=== PATIENT | male | born 1985 | race Hispanic/Latino ===

== ENCOUNTER 2016-12-17 11:45 | Emergency (ER) | payer BC, OTHER ==
[2016-12-17] MEDS ORDERED: cloNIDine HCL 0.1 MG TAB PO ONE (13:27)
--- NOTE | 2016-12-17 13:29 | ED.PDOC ---
History of Present Illness - General Chief Complaint: General Stated Complaint: Hypertensive Just completed dialysis Time Seen by Provider: 12/17/16 13:16 Source: patient, RN notes reviewed, Vital Signs reviewed, family Exam Limitations: no limitations - History of Present Illness Initial Comments: Patient comes in with elevated blood pressure and a LEAL. Elevated BP was noted during dialysis this morning. He was given Clonidine 0.1mg X3 during dialysis w/ o improvement. Along with this he had some mild L sided chest pain which has resolved. He had a similar episode of CP last week but was told it was due to a panic attack. Reports his LEAL is currently 05/09. Timing/Duration: 4-6 hours Severity: moderate Improving Factors: nothing Worsening Factors: nothing Associated Symptoms: chest pain - worse with deep breath, headaches, malaise Allergies/Adverse Reactions: Allergies NO KNOWN ALLERGY Allergy (Verified 04/18/14 14:47) Home Medications: Ambulatory Orders Acetaminophen [Tylenol 8 Hour] 650 mg PO Q4HR PRN 12/17/16 Calcitriol 0.25 mcg PO DAILY 12/17/16 Calcium Acetate (Phosphate Bin [Phoslo] 1,334 mg PO ACHS 12/17/16 Clonidine HCl 0.1 mg PO DAILY 12/17/16 Cyclobenzaprine HCl 5 mg PO Q8HR PRN #12 tab 12/17/16 Diphenhydramine HCl [Diphenhist] 25 mg PO Q4HR PRN 12/17/16 Loperamide Cap [Imodium Cap] 2 mg PO Q30MIN PRN 12/17/16 Nitroglycerin 0.4 mg SL STAT PRN 12/17/16 Olmesartan Medoxomil [Benicar] 40 mg PO BEDTIME 12/17/16 Review of Systems - Review of Systems Constitutional: States: malaise EENTM: States: no symptoms reported Respiratory: States: no symptoms reported. Denies: short of breath Cardiology: States: see HPI, chest pain. Denies: palpitations, syncope Gastrointestinal/Abdominal: States: abdominal pain - RUQ off and on for a week or so, none currently Musculoskeletal: States: no symptoms reported Skin: States: no symptoms reported Neurological: States: headache. Denies: numbness, paresthesia, tingling All other Systems: No Change from Baseline Past Medical History (General) - Patient Medical History Hx Seizures: No Hx Stroke: No Hx Dementia: No Hx Asthma: No Hx of COPD: No Hx Cardiac Disorders: No Hx Congestive Heart Failure: No Hx Pacemaker: No Hx Hypertension: Yes Hx Thyroid Disease: No Hx Diabetes: No Hx Gastroesophageal Reflux: No Hx Renal Disease: Yes Hx Cancer: No Hx of HIV: No Hx Hepatitis C: No Hx MRSA: No Surgical History: no surgical history - Vaccination History Hx Tetanus, Diphtheria Vaccination: No Hx Influenza Vaccination: Yes Hx Pneumococcal Vaccination: Yes - Social History Hx Tobacco Use: No Hx Chewing Tobacco Use: No Hx Alcohol Use: No Hx Substance Use: No Hx Substance Use Treatment: No Hx Depression: No Feels Threatened In Home Enviroment: No Feels Threatened In a Relationship: No Hx Physical Abuse: No Hx Emotional Abuse: No Hx Suspected Abuse: No - Female History Patient : No Family Medical History - Family History Father Family History: No Known Living Status: Still Living Physical Exam - Physical Exam General Appearance: Alert, Comfortable, No apparent distress, Well Developed, Well Groomed, Well Hydrated, Well Nourished Neck: supple, normal inspection Respiratory: chest non-tender, lungs clear, normal breath sounds, no respiratory distress, no accessory muscle use Cardiovascular/Chest: regular rate, rhythm, no gallop, no murmur Gastrointestinal/Abdominal: normal bowel sounds, non tender, soft, no organomegaly, no pulsatile mass Extremity: normal inspection Neurologic: alert, normal mood/affect, oriented x 3 Skin Exam: normal color, warm/dry Comments: Vital Signs 12/17/16 12:14 Temperature 97.6 F Pulse Rate [L 55 L Arm] Respiratory 20 Rate Blood Pressure 191/108 [L Arm] O2 Sat by Pulse 100 Oximetry Progress - Progress Progress: 12/17/16 14:57 No improvement in BP after Clonidine 0.1mg PO Gave Cardizem 10mg IV 12/17/16 18:08 No change in BP after Cardizem. Gave Norvasc, still no change. @~17:15 patient mentioned he does take Benicar. He is suppose to take at night but took this morning prior to dialysis. Had him go ahead and take his normal evening dose of 40mg. Currently his BP is 199/98, improved from 208/112. Will con't to watch and see if it continues to come down. 12/17/16 18:37 BP improving 171/102 LEAL gone but still having pain in his upper back and neck. + muscle spasm and tenderness. Will give Flexeril 5mg PO. 12/17/16 18:53 BP 165/95 - Results/Orders Results/Orders: Laboratory Tests 12/17/16 12/17/16 13:35 13:35 WBC 6.8 RBC 3.84 L Hgb 11.5 L Hct 34.7 L MCV 90.2 MCH 29.9 MCHC 33.3 RDW 17.7 H Plt Count 221 MPV 7.5 Absolute Neuts (auto) 5.00 Absolute Lymphs (auto) 1.10 Absolute Monos (auto) 0.50 Absolute Eos (auto) 0.10 Absolute Basos (auto) 0.00 Neutrophils % 74.1 Lymphocytes % 16.5 L Monocytes % 7.5 Eosinophils % 1.5 Basophils % 0.4 Sodium 137 Potassium 3.6 Chloride 93 L Carbon Dioxide 31 Anion Gap 16.6 BUN 14 Creatinine 4.88 H BUN/Creatinine Ratio 2.9 L Random Glucose 86 Serum Osmolality 273.6 L Calcium 9.2 Total Bilirubin 0.8 AST 24 ALT 37 Alkaline Phosphatase 97 Creatine Kinase 70 CK-MB (CK-2) 0.5 CK-MB (CK-2) % Not Reportable Troponin I < 0.02 Serum Total Protein 7.7 Albumin 4.5 Globulin 3.2 Albumin/Globulin Ratio 1.4 - EKG/XRAY/CT XRAY: chest - Normal per Radiologist Departure - Departure Clinical Impression: Muscle spasm of back Hypertension Qualifiers: Hypertension type: renovascular hypertension Qualified Code(s): I15.0 - Renovascular hypertension Headache, tension-type Qualifiers: Headache chronicity pattern: acute headache Intractability: not intractable Qualified Code(s): G44.209 - Tension-type headache, unspecified, not intractable Time of Disposition: 18:54 Disposition: Discharge to Home or Self Care Condition: Fair Departure Forms: ED Discharge - Pt. Copy, Patient Portal Self Enrollment Instructions: High Blood Pressure Diet: resume usual diet Activity: increase activity as tolerated Referrals: SAURAV SWANSON [Primary Care Provider] - 1-2 Weeks Prescriptions: Cyclobenzaprine HCl 5 mg PO Q8HR PRN #12 tab PRN Reason: Muscle Spasms Home Medications: Ambulatory Orders Acetaminophen [Tylenol 8 Hour] 650 mg PO Q4HR PRN 12/17/16 Calcitriol 0.25 mcg PO DAILY 12/17/16 Calcium Acetate (Phosphate Bin [Phoslo] 1,334 mg PO ACHS 12/17/16 Clonidine HCl 0.1 mg PO DAILY 12/17/16 Cyclobenzaprine HCl 5 mg PO Q8HR PRN #12 tab 12/17/16 Diphenhydramine HCl [Diphenhist] 25 mg PO Q4HR PRN 12/17/16 Loperamide Cap [Imodium Cap] 2 mg PO Q30MIN PRN 12/17/16 Nitroglycerin 0.4 mg SL STAT PRN 12/17/16 Olmesartan Medoxomil [Benicar] 40 mg PO BEDTIME 12/17/16
[2016-12-17] MEDS ORDERED: amLODIPine BESYLATE 5 MG TAB PO ONE (15:27)
--- NOTE | 2016-12-17 17:10 | RAD ---
EXAM DESCRIPTION: Chest,2 Views CLINICAL HISTORY: 31 years Male chest discomfort COMPARISON: None. FINDINGS: The cardiomediastinal silhouette appears unremarkable. No consolidating infiltrates or pleural effusions. No pneumothorax. IMPRESSION: No acute abnormality is identified. Electronically signed by: Johanne Lawton 12/17/2016 5:09 PM CDT
[2016-12-17] MEDS ORDERED: CYCLOBENZAPRINE HCL 5 MG TAB PO ONE (18:38)
[2016-12-17 18:47] VITALS: O2SAT 100
[2016-12-17 19:24] VITALS: BP 159/99; TEMP 97
== END 2016-12-17 19:24 | disposition home or self-care (01) ==
LOC: ER 11:45
DX: G44.209 Tension-type headache, unspecified, not intractable (principal); M62.830 Muscle spasm of back; I12.0 Hypertensive chronic kidney disease with stage 5 chronic kidney disease or end stage renal disease; N18.6 End stage renal disease; Z99.2 Dependence on renal dialysis; Z79.899 Other long term (current) drug therapy

== ENCOUNTER → 2019-09-27 | Outpatient (CLI) | payer SELFPAY | LOC: YCFC.O 14:50 | PROVIDERS: ATTEND Family Medicine | DX: Z03.818 Encounter for observation for suspected exposure to other biological agents ruled out (principal) ==

== ENCOUNTER → 2019-10-13 | Outpatient (CLI) | payer BC | LOC: YCFC.O 11:00 | PROVIDERS: ATTEND Nurse Practitioner Family | DX: Z03.818 Encounter for observation for suspected exposure to other biological agents ruled out (principal); Z11.59 Encounter for screening for other viral diseases ==

== ENCOUNTER → 2019-11-22 | Outpatient (CLI) | payer BC | LOC: YCFC.O 09:39 | PROVIDERS: ATTEND Nurse Practitioner Family | DX: N18.6 End stage renal disease (principal); R36.1 Hematospermia; R30.9 Painful micturition, unspecified ==